=== PATIENT | female | born 1995 | race African-American/Black ===

== ENCOUNTER 2018-09-13 14:11 | Emergency (ER) | payer OTHER ==
[2018-09-13 14:25] VITALS: BP 98/59; PULSE 64; TEMP 98.6; BMI 28.9
--- NOTE | 2018-09-13 14:25 | PDOC ---
Rapid Medical Evaluation Chief Complaint: Chest Pain Medical Evaluation: I have performed a brief in-person evaluation of this patient. The patient presents with a chief complaint of: hx asthma, c/o CP (sometimes R sided/L sided) x 1-2 months intermittent worse with inspiration; was on OCPs, but stopped medication 1-2 months ago; denies fever, cough, sob, recent travel Pertinent physical exam findings: In NAD, lungs clear, +reproducible chest pain I have ordered the following: EKG, CXR, labs The patient will proceed to the ED for further evaluation. 09/13/18 14:21
[2018-09-13 15:21] LABS: ANION GAP 5 MMOL/L (8-16); BLOOD UREA NITROGEN 15 mg/dL (7-18); CALCIUM 9.1 mg/dL (8.5-10.1); CHLORIDE 107 mmol/L (98-107); CO2 28 mmol/L (21-32); CREATININE 0.9 mg/dL (0.55-1.3); GLUCOSE,RANDOM 77 mg/dL (74-106); POTASSIUM 4.2 mmol/L (3.5-5.1); SODIUM 140 mmol/L (136-145)
[2018-09-13] MEDS ORDERED: IBUPROFEN 600 MG TABLET (FP) PO ONE ×2 (15:38→15:57)
[2018-09-13 15:53] LABS: BASO % 1.1 % (0-2.0); EOS % 1.2 % (0-4.5); HEMATOCRIT 42.2 % (32.4-45.2); HEMOGLOBIN 14.4 GM/dL (10.7-15.3); LYMPH % 31.1 % (8-40); MCH 30.1 pg (25.7-33.7); MCHC 34.2 g/dl (32.0-36.0); MEAN PLT VOLUME 8.3 fl (7.5-11.1); NEUT % 58.6 % (42.8-82.8); PLATELET COUNT 324 K/MM3 (134-434); RDW 13.2 % (11.6-15.6); WHITE BLOOD COUNT 4.3 K/mm3 (4.0-10.0)
--- NOTE | 2018-09-13 16:09 | PDOC ---
History of Present Illness - General Chief Complaint: Chest Pain Stated Complaint: CHEST PAIN Time Seen by Provider: 09/13/18 14:20 History Source: Patient Exam Limitations: No Limitations - History of Present Illness Initial Comments: HPI: 23 y/o female presenting to [facility] ER complaining of acute on chronic chest pain. Pain is localized to right anteromedial aspect of chest and upper back. Described as sharp in nature and only present with deep inspiration. Duration ranges from just a little while to an hour. Unable to determine illeciting events. Denies breathlessness or palpitations. Pt stopped taking OCPs two months ago. Denies personal or familial history of bleeding disorders, recent travel or periods of immobilization, recent surgery, or h/o cancer. Has been evaluated by Urgent Care and PCP over the last several weeks. Both times was told nothing is wrong. Medical Hx: - Seasonal Asthma, managed with Albuterol PRN, has not used in several weeks Surgical Hx: - Pt denies past surgical history. Past History - Past Medical History Allergies/Adverse Reactions: Allergies Allergy/AdvReac Type Severity Reaction Status Date / Time No Known Allergies Allergy Verified 09/13/18 14:25 - Suicide/Smoking/Psychosocial Hx Smoking History: Never smoked Have you smoked in the past 12 months: No Information on smoking cessation initiated: No Hx Alcohol Use: No Drug/Substance Use Hx: No Review of Systems - Review of Systems Able to Perform ROS?: Yes Comments:: In addition to that documented in the HPI above, the additional ROS was obtained : Constitutional: Denies fevers or chills Head: Denies headache ENMT: Denies sore throat CV: Denies chest pain Resp: Per HPI GI: Denies vomiting or diarrhea : Denies painful urination MSK: Denies recent trauma Skin: Denies new rashes Neuro: Denies new numbness or tingling or weakness Endocrine: Denies polyuria Heme: Denies bleeding or bruising *Physical Exam - Vital Signs Last Vital Signs Temp Pulse Resp BP Pulse Ox 98.6 F 64 20 98/59 L 100 09/13/18 14:21 09/13/18 14:21 09/13/18 14:21 09/13/18 14:21 09/13/18 14:21 - Physical Exam Comments: Constitutional: Well-developed, well-nourished, non-toxic female in no acute distress or obvious discomfort. Found sitting upright on edge of hospital hallway bed in telephone conversation. Alert and oriented x4. Answered all questions appropriately and completely. Speech was non-labored, non-pressured. Head: Normocephalic. No obvious external signs of trauma. Eyes: Sclerae white. Ears: Hearing grossly intact. Nose: No nasal discharge. Neck: Supple, trachea is midline. Cardiovascular / Chest: Regular rate and regular rhythm. No murmur, rubs, clicks, or gallops. Peripheral pulses: radial pulses full. Right costochondral joint tender to palpation. No skin lesions. Respiratory: Breathing unlabored. Equal chest rise and fall. Clear to auscultation bilaterally. No stridor, no wheezing, no rhonchi. Gastrointestinal: abdomen is soft, non-tender, non-distended. Neuro: Alert and oriented. Moving all four extremities spontaneously. Skin: Warm, dry, and intact. Psych: Affect: appropriate. Mood: normal. Moderate Sedation - Procedure Monitoring Vital Signs: Procedure Monitoring Vital Signs Temperature 98.6 F 09/13/18 14:21 Pulse Rate 64 09/13/18 14:21 Respiratory Rate 20 09/13/18 14:21 Blood Pressure 98/59 L 09/13/18 14:21 O2 Sat by Pulse Oximetry (%) 100 09/13/18 14:21 ED Treatment Course - LABORATORY CBC & Chemistry Diagram: 09/13/18 14:38 09/13/18 14:38 - ADDITIONAL ORDERS Additional order review: Laboratory Results 09/13/18 09/13/18 09/13/18 14:41 14:39 14:38 D-Dimer < 215 Sodium 140 Potassium 4.2 Chloride 107 Carbon Dioxide 28 Anion Gap 5 L BUN 15 Creatinine 0.9 Creat Clearance w eGFR > 60 Random Glucose 77 Calcium 9.1 Urine HCG, Qual Negative 09/13/18 14:38 RBC 4.80 MCV 88.0 MCHC 34.2 RDW 13.2 MPV 8.3 Neutrophils % 58.6 Lymphocytes % 31.1 Monocytes % 8.0 Eosinophils % 1.2 Basophils % 1.1 - Medications Given in the ED: ED Medications Discontinued Medications Generic Name Dose Route Start Last Admin Trade Name Freq PRN Reason Stop Dose Admin Ibuprofen 600 mg 09/13/18 15:38 09/13/18 16:04 Motrin - PO 09/13/18 15:39 Not Given ONCE ONE *DC/Admit/Observation/Transfer Diagnosis at time of Disposition: Atypical chest pain - Discharge Dispostion Disposition: HOME Condition at time of disposition: Good Decision to Admit order: No - Referrals - Patient Instructions Printed Discharge Instructions: DI for Atypical Chest Pain Additional Instructions: You can take over the counter Tylenol or Advil as needed for pain. Take as directed on the package insert. Do not exceed the recommended dosage. Follow up with your primary care doctor within the next 3-4 days. You will need to call to make an appointment. The number is included in this packet. A copy of todays results are attached to this packet. Take it to the appointment so your doctor can review them. Go to the nearest emergency department if your condition worsens or you feel like you need additional emergency evaluation. Print Language: CZECH - Post Discharge Activity Forms/Work/School Notes: Back to Work
--- NOTE | 2018-09-13 16:43 | PDOC ---
Attending Attestation - Resident Resident Name: BishopSemaj - ED Attending Attestation I have performed the following: I have examined & evaluated the patient, The case was reviewed & discussed with the resident, I agree w/resident's findings & plan, Exceptions are as noted - HPI HPI: 09/13/18 16:40 23 yo F no pmhx recent bviral uri here wtih c/o chest pain. not plueritic. worse with movement. no sob. no leg swelling no h/o travel. no prior pe or dvt. no cough currently no f/c n/v. no other complaints. - Physicial Exam PE: 09/13/18 16:41 awake alert lungs clear bilaterally heart rrr no mrg abd soft nt nd. ext wwp no edema. no calf tenderness. nuero alert oriented x 3. chest wall ttp. - Medical Decision Making 09/13/18 16:41 pt with reproducible chest pain. ttp. will obatin cxr ekg d dimer. r/o infection d dimer normal. cxr normal. labs unremarkable. ekg normal. dc home instructions for costochondritis. Heart Score/ECG Review #1 General ECG Interpretation: Sinus Rhythm, Normal Intervals, No acute ischemic changes Compared to previous ECG there are: Other (sinus bradycardia 50)
--- NOTE | 2018-09-14 10:43 | EKG ---
Test Reason : Blood Pressure : / mmHG Vent. Rate : 050 BPM Atrial Rate : 050 BPM P-R Int : 170 ms QRS Dur : 074 ms QT Int : 400 ms P-R-T Axes : 049 060 041 degrees QTc Int : 364 ms SINUS BRADYCARDIA OTHERWISE NORMAL ECG NO PREVIOUS ECGS AVAILABLE Confirmed by PARAMJIT AKHTAR, CHIOMA ([id number]) on 09/14/2018 10:42:47 AM Referred By: Confirmed By:CHIOMA YUSUF MD
== END 2018-09-13 16:47 | disposition home or self-care (01) ==
LOC: JER 14:11
DX: R07.89 Other chest pain (principal); Z87.09 Personal history of other diseases of the respiratory system
CPT/HCPCS: 36415; 71046-TC-FY; 80048; 84703; 85025; 85379; 93005; 93010; 99282-25

== ENCOUNTER 2018-10-31 09:56 | Emergency (ER) | payer OTHER ==
[2018-10-31 10:02] VITALS: BP 111/75; PULSE 68; TEMP 98.4; BMI 28.6
--- NOTE | 2018-10-31 10:39 | PDOC ---
History of Present Illness - General Chief Complaint: Vaginal Bleeding Stated Complaint: VAGINAL BLEED Time Seen by Provider: 10/31/18 10:39 History Source: Patient Exam Limitations: No Limitations - History of Present Illness Initial Comments: 10/31/18 10:54 23 year old female with no PMH A2 LMP 09/14 presented to ED for vaginal bleeding since Wednesday. She stated took a positive home test 10/21, saw her OB Dr. Heart the next week, had a positive UPT in the office, TVUS in the office did not show intrauterine or adnexal masses. She stated she was supposed to return for repeat beta testing, but did not. She stated she uses 2 pads a day, passes a large clot Wednesday. She admitted to mild pelvic cramping. She denied chest pain, shortness of breath, lightheadedness, headache , nausea, vomiting, fever, chills. Allergies: NKDA Past History - Past Medical History Allergies/Adverse Reactions: Allergies Allergy/AdvReac Type Severity Reaction Status Date / Time No Known Allergies Allergy Verified 10/31/18 10:01 Home Medications: Ambulatory Orders NK [No Known Home Medication] 09/13/18 Asthma: Yes COPD: No - Suicide/Smoking/Psychosocial Hx Smoking History: Never smoked Have you smoked in the past 12 months: No Information on smoking cessation initiated: No Hx Alcohol Use: No Drug/Substance Use Hx: No Review of Systems - Review of Systems Able to Perform ROS?: Yes Comments:: 10/31/18 10:56 General: denied fever, chills, generalized weakness. HEENT: denied sore throat, rhinorrhea, ear pain. Heart: denied chest pain, palpitations, syncope, diaphoresis. Respiratory: denied shortness of breath, cough, sputum production, hemoptysis. Abdomen: denied abdominal pain, nausea, vomiting, diarrhea, constipation, blood in stool. : admitted to vaginal bleeding, pelvic cramping. denied dysuria, increased urinary frequency, hematuria, urinary incontinence, flank pain. Back: denied back pain. Musculoskeletal: denied joint pain, muscle pain, joint swelling. Neurological: denied headache, dizziness, numbness, tingling, weakness. Skin: denied rash, laceration, abrasion. *Physical Exam - Vital Signs Last Vital Signs Temp Pulse Resp BP Pulse Ox 98.4 F 68 17 111/75 97 10/31/18 09:58 10/31/18 09:58 10/31/18 09:58 10/31/18 09:58 10/31/18 09:58 - Physical Exam Comments: 10/31/18 10:57 Constitutional: Well-nourished, Well-developed, appearing stated age. HEENT: head is normocephalic, atraumatic. EOMI. PERRLA. Neck: supple. Full ROM. Heart: regular rhythm. no murmurs, rubs or gallops. Lungs: clear to auscultation bilaterally. no crackles, rhonchi or wheezing. no stridor. Abdomen: soft, nontender. normal bowel sounds. no rebound, guarding, masses. Extremities: peripheral pulses intact. no lower extremity edema. Neurological: CN 2-12 grossly intact. moves all four extremities. Psych: awake, alert, oriented x3. follows commands. answers questions appropriately. Pelvic: normal external genitalia. small amount of pooling of blood in the vaginal canal, cervical os open, no CMT, no adnexal tenderness bilaterally. ED Treatment Course - LABORATORY CBC & Chemistry Diagram: 10/31/18 10:51 10/31/18 10:51 Medical Decision Making - Medical Decision Making 10/31/18 10:57 23 year old female A2 LMP 09/14 presented to ED for vaginal bleeding associated with pelvic cramping. Initial Vital Signs Temp Pulse Resp BP Pulse Ox 98.4 F 68 17 111/75 97 10/31/18 09:58 10/31/18 09:58 10/31/18 09:58 10/31/18 09:58 10/31/18 09:58 Afebrile. No tachycardia. No tachypnea. Normal blood pressure. No hypoxia on room air. Labs ordered: CBC, CMP, UA/UC, serum beta quant, T/S, coags Imaging ordered: TVUS Medications ordered: none -Pt refused Tylenol, stated she does not like to take medication 10/31/18 11:43 CBC WBC 5.0 K/mm3 (4.0-10.0) 10/31/18 10:51 RBC 4.74 M/mm3 (3.60-5.2) 10/31/18 10:51 Hgb 13.7 GM/dL (10.7-15.3) 10/31/18 10:51 Hct 41.5 % (32.4-45.2) 10/31/18 10:51 MCV 87.5 fl (80-96) 10/31/18 10:51 MCH 29.0 pg (25.7-33.7) 10/31/18 10:51 MCHC 33.1 g/dl (32.0-36.0) 10/31/18 10:51 RDW 13.6 % (11.6-15.6) 10/31/18 10:51 Plt Count 336 K/MM3 (134-434) 10/31/18 10:51 MPV 7.8 fl (7.5-11.1) 10/31/18 10:51 Absolute Neuts (auto) 3.5 K/mm3 (1.5-8.0) 10/31/18 10:51 Neutrophils % 68.9 % (42.8-82.8) 10/31/18 10:51 Lymphocytes % 25.0 % (8-40) 10/31/18 10:51 Monocytes % 4.2 % (3.8-10.2) 10/31/18 10:51 Eosinophils % 1.1 % (0-4.5) 10/31/18 10:51 Basophils % 0.8 % (0-2.0) 10/31/18 10:51 Nucleated RBC % 0 % (0-0) 10/31/18 10:51 No leukocytosis. No anemia. 10/31/18 11:43 Urine Test Results Urine Color Yellow 10/31/18 11:00 Urine Appearance Clear 10/31/18 11:00 Urine pH 5.5 (5.0-8.0) 10/31/18 11:00 Ur Specific [place] 1.027 (1.010-1.035) 10/31/18 11:00 Urine Protein Negative (NEGATIVE) 10/31/18 11:00 Urine Glucose (UA) Negative (NEGATIVE) 10/31/18 11:00 Urine Ketones Negative (NEGATIVE) 10/31/18 11:00 Urine Blood 3+ (NEGATIVE) H 10/31/18 11:00 Urine Nitrite Negative (NEGATIVE) 10/31/18 11:00 Urine Bilirubin Negative (NEGATIVE) 10/31/18 11:00 Ur Leukocyte Esterase Negative (NEGATIVE) 10/31/18 11:00 Negative for UTI. Blood in urine likely from vaginal bleeding. 10/31/18 11:59 CMP Sodium 136 mmol/L (136-145) 10/31/18 10:51 Potassium 4.3 mmol/L (3.5-5.1) 10/31/18 10:51 Chloride 107 mmol/L (98-107) 10/31/18 10:51 Carbon Dioxide 25 mmol/L (21-32) 10/31/18 10:51 Anion Gap 4 MMOL/L (8-16) L 10/31/18 10:51 BUN 16 mg/dL (7-18) 10/31/18 10:51 Creatinine 0.9 mg/dL (0.55-1.3) 10/31/18 10:51 Creat Clearance w eGFR 77.59 (>60) 10/31/18 10:51 Random Glucose 80 mg/dL (74-106) 10/31/18 10:51 Calcium 9.3 mg/dL (8.5-10.1) 10/31/18 10:51 Total Bilirubin 0.7 mg/dL (0.2-1) 10/31/18 10:51 AST 13 U/L (15-37) L 10/31/18 10:51 ALT 15 U/L (13-61) 10/31/18 10:51 Alkaline Phosphatase 54 U/L (45-117) 10/31/18 10:51 Total Protein 7.4 g/dl (6.4-8.2) 10/31/18 10:51 Albumin 3.6 g/dl (3.4-5.0) 10/31/18 10:51 No electrolyte abnormalities. No FRANCIE. No transaminitis. T/S: A+ - No need for Rhogam 10/31/18 12:18 Beta 1414 Pending TVUS report. 10/31/18 13:23 TVUS report: intrauterine gestation sac like struture in the lower uterine segment with a man sac diameter of 4 mm. no pole or yolk sac identified. suggestive of in progress. likely hemorrhagic corpus luteum cyst in the right ovary measuring 1.5x1.4cm. Dr. Heart's office called, she is out of the office on vacation, nurse reported b-Hcg on 10/26/18 was 1812.9. Pt likely having spontaneous miscarriage. Pt informed of results. Pt informed to follow up in OB or ED for repeat beta in 2 days. Pt discharged. *DC/Admit/Observation/Transfer Diagnosis at time of Disposition: Vaginal bleeding, Spontaneous miscarriage - Discharge Dispostion Condition at time of disposition: Stable Decision to Admit order: No - Referrals - Patient Instructions Printed Discharge Instructions: Dealing With Miscarriage, DI for Miscarriage, DI for Vaginal Bleeding Additional Instructions: You were seen today for vaginal bleeding. Your lab work showed a decreasing level hormone, which is consistent with a miscarriage. You will continue to bleed for a few days, and it could increase. Follow up with your OB in 48 hours to ensure this number continues to decrease. If you cannot get an appointment then return to the Emergency Department. You MUST have this level rechecked. Take Tylenol and/or Motrin for the pain. They are not the same medication and can be taken at the same time. Take as advised on labels. Return to the Emergency Department for chest pain, shortness of breath, soaking through >2 pads in 2 hours for longer than 4 hours, lightheadedness like you may pass out, fever, vomiting, or any other new, worsening or concerning symptoms. - Post Discharge Activity Forms/Work/School Notes: Back to Work
[2018-10-31 11:06] LABS: BASO % 0.8 % (0-2.0); EOS % 1.1 % (0-4.5); HEMATOCRIT 41.5 % (32.4-45.2); HEMOGLOBIN 13.7 GM/dL (10.7-15.3); MCHC 33.1 g/dl (32.0-36.0); MEAN CELL VOLUME 87.5 fl (80-96); MEAN PLT VOLUME 7.8 fl (7.5-11.1); MONO % 4.2 % (3.8-10.2); NEUT % 68.9 % (42.8-82.8); PLATELET COUNT 336 K/MM3 (134-434); RBC 4.74 M/mm3 (3.60-5.2); RDW 13.6 % (11.6-15.6)
[2018-10-31 11:18] LABS: EPI CELLS 2.5 /HPF (0-5/HPF); PH,URINE 5.5 (5.0-8.0); URINE APPEARANCE CLEAR; URINE BACTERIA 83.3 /hpf (NEGATIVE); URINE BILIRUBIN NEGATIVE (NEGATIVE); URINE CASTS 1 /lpf (0-8); URINE COLOR YELLOW; URINE GLUCOSE (UA) NEGATIVE (NEGATIVE); URINE KETONE NEGATIVE (NEGATIVE); URINE LEUK ESTERASE NEGATIVE (NEGATIVE); URINE NITRITE NEGATIVE (NEGATIVE); URINE PROTEIN NEGATIVE (NEGATIVE); URINE RBC 98 /hpf (0-4); URINE UROBILINOGEN 0.2 mg/dL (0.2-1.0); URINE WBC 2 /hpf (0-5)
[2018-10-31 11:36] LABS: INR 1.1 (0.83-1.09)
[2018-10-31 11:49] LABS: ALBUMIN 3.6 g/dl (3.4-5.0); ALK PHOS 54 U/L (45-117); ANION GAP 4 MMOL/L (8-16); BILIRUBIN,TOTAL 0.7 mg/dL (0.2-1); BLOOD UREA NITROGEN 16 mg/dL (7-18); CALCIUM 9.3 mg/dL (8.5-10.1); CHLORIDE 107 mmol/L (98-107); CO2 25 mmol/L (21-32); CREATININE 0.9 mg/dL (0.55-1.3); GLUCOSE,RANDOM 80 mg/dL (74-106); POTASSIUM 4.3 mmol/L (3.5-5.1); SGOT/AST 13 U/L (15-37); SGPT/ALT 15 U/L (13-61); SODIUM 136 mmol/L (136-145); TOT PROT 7.4 g/dl (6.4-8.2)
--- NOTE | 2018-10-31 11:59 | PDOC ---
Attending Attestation - Resident Resident Name: Violet Steven - ED Attending Attestation I have performed the following: I have examined & evaluated the patient, The case was reviewed & discussed with the resident, I agree w/resident's findings & plan, Exceptions are as noted - HPI HPI: 23 yo F A2 (two prior abortions) presents approximately 6 weeks 5 days by LMP with vaginal bleeding. She states she saw Dr. Heart previously, they were unable to see an IUP. She has had light bleeding since then (less than a pad a day). Denies any pain, lightheadedness. - Physicial Exam PE: GENERAL: Awake, alert, and fully oriented, in no acute distress HEAD: No signs of trauma EYES: PERRLA, EOMI, sclera anicteric, conjunctiva clear ENT: Auricles normal inspection, hearing grossly normal, nares patent, oropharynx clear without exudates. Moist mucosa NECK: Normal ROM, supple, no lymphadenopathy, JVD, or masses LUNGS: Breath sounds equal, clear to auscultation bilaterally. No wheezes, and no crackles HEART: Regular rate and rhythm, normal S1 and S2, no murmurs, rubs or gallops ABDOMEN: Soft, nontender, normoactive bowel sounds. No guarding, no rebound. No masses EXTREMITIES: Normal range of motion, no edema. No clubbing or cyanosis. No cords, erythema, or tenderness NEUROLOGICAL: Cranial nerves II through XII grossly intact. Normal speech, normal gait. Motor and sensation intact SKIN: Warm, Dry, normal turgor, no rashes or lesions noted. - Medical Decision Making Contacted Dr. Heart's office, previous BHCG was ~1800. Given the ultrasound findings and the decreasing BHCG, this is likely a miscarriage in progress. Expectant management. 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
== END 2018-10-31 14:30 | disposition home or self-care (01) ==
LOC: JER 09:56
DX: O26.891 Other specified pregnancy related conditions, first trimester (principal); O03.4 Incomplete spontaneous abortion without complication; O34.81 Maternal care for other abnormalities of pelvic organs, first trimester; N83.11 Corpus luteum cyst of right ovary; Z3A.00 Weeks of gestation of pregnancy not specified
CPT/HCPCS: 36415; 76817-TC; 80053; 81003; 84702; 85025; 85610; 85730; 86850; 86900; 86901; 87086; 99282-25

== ENCOUNTER 2018-11-02 14:08 | Emergency (ER) | payer OTHER ==
[2018-11-02 14:18] VITALS: BP 103/58; PULSE 61; TEMP 98.2; BMI 28.6
--- NOTE | 2018-11-02 14:43 | PDOC ---
History of Present Illness - General Chief Complaint[place] [facility] [place] Complaint: [place] Time Seen by Provider: 11/02/18 14:27 Past History - Past Medical History Allergies/Adverse Reactions: Allergies Allergy/AdvReac Type Severity Reaction Status Date / Time No Known Allergies Allergy Verified 11/02/18 14:28 Home Medications: Ambulatory Orders NK [No Known Home Medication] 09/13/18 Asthma: Yes COPD: No - Suicide/Smoking/Psychosocial Hx Smoking History: Never smoked Have you smoked in the past 12 months: No Information on smoking cessation initiated: No Hx Alcohol Use: No Drug/Substance Use Hx: No *Physical Exam - Vital Signs Last Vital Signs Temp Pulse Resp BP Pulse Ox 98.2 F 61 18 103/58 L 99 11/02/18 14:14 11/02/18 14:14 11/02/18 14:14 11/02/18 14:14 11/02/18 14:14 *DC/Admit/Observation/Transfer Diagnosis at time of Disposition: Threatened - Discharge Dispostion Disposition: HOME Condition at time of disposition: Stable Decision to Admit order: No - Referrals Referrals: Naye Heart MD [Staff Physician] - - Patient Instructions Printed Discharge Instructions: DI for Threatened Additional Instructions: Your ultrasound today was unchanged from 2 days ago. Your beta hCG increased to 1900 today. Please follow-up with Dr. Villasenor in the office tomorrow. This is a potential miscarriage however it could still possibly be a viable . Return to the ER for abdominal pain, vomiting, vaginal bleeding with more than 1 pad use per hour, fever, or if you have any changes in your symptoms. - Post Discharge Activity Forms/Work/School Notes: Back to Work
== END 2018-11-02 17:44 | disposition home or self-care (01) ==
LOC: JERFT 14:08
DX: O20.0 Threatened abortion (principal); Z3A.00 Weeks of gestation of pregnancy not specified; J45.909 Unspecified asthma, uncomplicated
CPT/HCPCS: 36415; 76817-TC; 84702; 99281-25

== ENCOUNTER 2018-11-12 12:12 | Emergency (ER) | payer OTHER ==
[2018-11-12 12:19] VITALS: TEMP 98; BMI 28.9
[2018-11-12 13:53] LABS: BASO % 1.3 % (0-2.0); EOS % 1.3 % (0-4.5); HEMATOCRIT 37.9 % (32.4-45.2); HEMOGLOBIN 12.7 GM/dL (10.7-15.3); LYMPH % 29.1 % (8-40); MCH 29.6 pg (25.7-33.7); MCHC 33.5 g/dl (32.0-36.0); MEAN CELL VOLUME 88.3 fl (80-96); MEAN PLT VOLUME 7.8 fl (7.5-11.1); MONO % 4.4 % (3.8-10.2); NEUT % 63.9 % (42.8-82.8); PLATELET COUNT 295 K/MM3 (134-434); RDW 13.6 % (11.6-15.6); WHITE BLOOD COUNT 4.8 K/mm3 (4.0-10.0)
--- NOTE | 2018-11-12 14:01 | PDOC ---
Documentation entered by Tim Jurado SCRIBE, acting as scribe for Mary Burger MD. Mary Burger MD: This documentation has been prepared by the sailajaibe, Tim Jurado SCRIBE, under my direction and personally reviewed by me in its entirety. I confirm that the documentation accurately reflects all work, treatment, procedures, and medical decision making performed by me. Attending Attestation - Resident Resident Name: Mary Landers - ED Attending Attestation I have performed the following: I have examined & evaluated the patient, The case was reviewed & discussed with the resident, I agree w/resident's findings & plan, Exceptions are as noted - HPI HPI: 11/12/18 13:29 The patient is a 23 year old female with a past medical history of A2 LMP here today for evaluation of vaginal bleeding. The patient reports that she was here 2 weeks ago for similar symptoms. She reports following up with with her OB, Dr. Heart but came in today due to heavier bleeding on (). Patient denies any pain. Patient denies headache, lightheadedness. Denies fever, chills. Denies chest pain, shortness of breath. Denies nausea, vomiting, diarrhea, abdominal pain. Allergies: OB: Naye Heart - Physicial Exam PE: GENERAL: Awake, alert, and fully oriented, in no acute distress HEAD: No signs of trauma EYES: PERRLA, EOMI, sclera anicteric, conjunctiva clear ENT: Auricles normal inspection, hearing grossly normal, nares patent, oropharynx clear without exudates. Moist mucosa NECK: Normal ROM, supple, no lymphadenopathy, JVD, or masses LUNGS: Breath sounds equal, clear to auscultation bilaterally. No wheezes, and no crackles HEART: Regular rate and rhythm, normal S1 and S2, no murmurs, rubs or gallops ABDOMEN: Soft, nontender, normoactive bowel sounds. No guarding, no rebound. No masses EXTREMITIES: Normal range of motion, no edema. No clubbing or cyanosis. No cords, erythema, or tenderness NEUROLOGICAL: Cranial nerves II through XII grossly intact. Normal speech, normal gait. Motor and sensation intact SKIN: Warm, Dry, normal turgor, no rashes or lesions noted. - Medical Decision Making Pt with intermittent bleeding through her first trimester. Now with bleeding today. Previously had a confirmatory ultrasound. Will send labs and obtain ultrasound.
--- NOTE | 2018-11-12 14:27 | PDOC ---
History of Present Illness - General Chief Complaint: Vaginal Bleeding Stated Complaint: VAGINAL BLEEDING Time Seen by Provider: 11/12/18 12:27 - History of Present Illness Initial Comments: 23yo A2 currently 9 weeks (LMP 09/14/18) presenting with vaginal bleeding. Patient has been seen previously in this ED with similar complaint. She states she has had vaginal bleeding since she had been discharged from the ED two weeks ago. 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 Patient states she had an informal ultrasound performed at her channel director's office which she says confirmed an intrauterine but she is unsure if it showed heart tones. She believes her most recent beta-hcg level was 2900. Patient had an appointment for a formal ultrasound today but decided to come to the ED instead due to her concern for continued vaginal bleeding. Denies abdominal pain. Reports passage of blood clots but no tissue. She has not felt contractions. No history of abdominal surgeries. No dysuria, hematuria, or urgency. Denies fever, chills, chest pain, or shortness of breath. 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 Past History - Past Medical History Allergies/Adverse Reactions: Allergies Allergy/AdvReac Type Severity Reaction Status Date / Time No Known Allergies Allergy Verified 11/12/18 12:36 Home Medications: Ambulatory Orders NK [No Known Home Medication] 09/13/18 Asthma: Yes COPD: No - Reproductive History Is Patient Now?: Yes Cervical CA: No Dysfunctional Uterine Bleeding: No Ectopic : No Endometrial CA: No Polycystic Ovaries: No Therapeutic (s) & number: Yes (2) Tubal Ligation: No - Suicide/Smoking/Psychosocial Hx Smoking History: Never smoked Have you smoked in the past 12 months: No Hx Alcohol Use: No Drug/Substance Use Hx: No Review of Systems - Review of Systems Comments:: Constitutional: no fever, no chills HEENT: no throat pain, no dysphagia Cardiovascular: no chest pain, no palpitations Respiratory: no cough, no shortness of breath Gastrointestinal: no abdominal pain, no nausea Genitourinary: no dysuria, +vaginal bleeding Musculoskeletal: no myalgia, no arthralgia Skin: no rash, no itching Neurologic: no headache, no weakness *Physical Exam - Vital Signs Last Vital Signs Temp Pulse Resp BP Pulse Ox 98 F 90 18 101/57 L 100 11/12/18 12:13 11/12/18 12:13 11/12/18 12:13 11/12/18 12:13 11/12/18 12:13 - Physical Exam Comments: General: Awake, alert, and fully oriented, in no acute distress Head: No signs of trauma Eyes: EOMI, sclera anicteric ENT: Moist mucus membranes Neck: Normal ROM, supple Lungs: Lungs clear, Normal breath sounds Cardio: Regular rhythm, S1 and S2 present Abdomen: Soft, nontender. No guarding, no rebound, no masses Extremities: Normal range of motion, Distal pulses present SKIN: Warm, Dry, normal turgor Neurologic: Cranial nerves II through XII grossly intact. Normal speech Pelvic: External genitalia without erythema, exudate or discharge. Vaginal vault is with moderate amout of blood and clots. No tissue noted. Cervix is of normal color without lesion. The os is closed. Uterus is noted to be of appropriate size and nontender. No cervical motion tenderness is seen. No masses are palpated. The adnexa are without masses or tenderness. ED Treatment Course - LABORATORY CBC & Chemistry Diagram: 11/12/18 13:43 11/12/18 13:41 - ADDITIONAL ORDERS Additional order review: 11/12/18 13:43 RBC 4.30 MCV 88.3 MCHC 33.5 RDW 13.6 MPV 7.8 Neutrophils % 63.9 Lymphocytes % 29.1 Monocytes % 4.4 Eosinophils % 1.3 Basophils % 1.3 - RADIOLOGY Radiology Studies Ordered: Category Date Time Status TRANSVAGINAL US PREG [US] Stat Ultrasound 11/12/18 13:26 Ordered Medical Decision Making - Medical Decision Making 23yo A2 currently 9 weeks (LMP 09/14/18) presenting with vaginal bleeding. DDX including but not limited to threatened , missed , ectopic CBC, CMP, B-hcg Per Type and Screen performed on 10/31/18, patient is Rh positive TVUS : "FINDINGS: The uterus measures 10.0 x 4.8 x 5.3 cm. The endometrium measures 0.4 cm in AP dimension. Again noted in the cervical portion the lower uterine segment of the uterus is a cystic structure measuring 1.0 x 0.5 x 0.9 cm. Prior studies is findings within suggested to represent a gestational sac. If so by ultrasound measurements 5 weeks 3 days. However again no evidence of a pole or yolk sac. The right ovary measures 3.6 x 1.4 x 2.0 cm.. Including a 1.2 cm complex ovarian cyst The left ovary measures 3.3 x 1.6 x 1.9 cm. There are no adnexal masses. There is no free fluid in the pelvis. IMPRESSION No gross change from prior studies. The findings could represent a gestational sac in the lower uterine segment or cervical portion of the uterus which would suggest an in progress. However clinical correlation recommended and correlation with beta-hCGs is recommended to confirm this finding and to exclude other etiologies" CBC WBC 4.8 K/mm3 (4.0-10.0) 11/12/18 13:43 RBC 4.30 M/mm3 (3.60-5.2) 11/12/18 13:43 Hgb 12.7 GM/dL (10.7-15.3) 11/12/18 13:43 Hct 37.9 % (32.4-45.2) 11/12/18 13:43 MCV 88.3 fl (80-96) 11/12/18 13:43 MCH 29.6 pg (25.7-33.7) 11/12/18 13:43 MCHC 33.5 g/dl (32.0-36.0) 11/12/18 13:43 RDW 13.6 % (11.6-15.6) 11/12/18 13:43 Plt Count 295 K/MM3 (134-434) 11/12/18 13:43 MPV 7.8 fl (7.5-11.1) 11/12/18 13:43 Absolute Neuts (auto) 3.1 K/mm3 (1.5-8.0) 11/12/18 13:43 Neutrophils % 63.9 % (42.8-82.8) 11/12/18 13:43 Lymphocytes % 29.1 % (8-40) 11/12/18 13:43 Monocytes % 4.4 % (3.8-10.2) 11/12/18 13:43 Eosinophils % 1.3 % (0-4.5) 11/12/18 13:43 Basophils % 1.3 % (0-2.0) 11/12/18 13:43 Nucleated RBC % 0 % (0-0) 11/12/18 13:43 No leukocytosis or anemia CMP Sodium 139 mmol/L (136-145) 11/12/18 13:41 Potassium 3.8 mmol/L (3.5-5.1) 11/12/18 13:41 Chloride 107 mmol/L (98-107) 11/12/18 13:41 Carbon Dioxide 27 mmol/L (21-32) 11/12/18 13:41 Anion Gap 5 MMOL/L (8-16) L 11/12/18 13:41 BUN 19 mg/dL (7-18) H 11/12/18 13:41 Creatinine 0.8 mg/dL (0.55-1.3) 11/12/18 13:41 Creat Clearance w eGFR 88.89 (>60) 11/12/18 13:41 Random Glucose 76 mg/dL (74-106) 11/12/18 13:41 Calcium 8.9 mg/dL (8.5-10.1) 11/12/18 13:41 Total Bilirubin 0.6 mg/dL (0.2-1) 11/12/18 13:41 AST 12 U/L (15-37) L 11/12/18 13:41 ALT 15 U/L (13-61) 11/12/18 13:41 Alkaline Phosphatase 53 U/L (45-117) 11/12/18 13:41 Total Protein 7.5 g/dl (6.4-8.2) 11/12/18 13:41 Albumin 3.7 g/dl (3.4-5.0) 11/12/18 13:41 Beta HCG, Quant 2262.5 mIU/ml 11/12/18 13:41 B-hcg is 2262.5, increased from 1956 on 11/02/18 but lower than patient's stated recent value of 2900 performed at another facility. This b-hcg also does not correspond with her estimated gestational age. TVUS does not confirm intrauterine . Patient instructed to get repeat b-hcg level at her already scheduled channel director appointment on Wednesday. High suspicion for threatened . Pelvic rest recommended. Discharged 11/13/18 12:35 *DC/Admit/Observation/Transfer Diagnosis at time of Disposition: Threatened - Discharge Dispostion Disposition: HOME Condition at time of disposition: Stable - Referrals - Patient Instructions Printed Discharge Instructions: DI for Threatened Additional Instructions: You were seen in the Emergency Department for vaginal bleeding during . Blood work showed your b-hcg level is 2262.5 today. Ultrasound did not confirm an intrauterine . Follow-up with your channel director on Wednesday to discuss this ED visit and to further evaluate your symptoms. Your workup is not complete until you do so. Pelvic rest is advised until your channel director says otherwise. Return to the Emergency Department if you experience: -heavy bleeding (more than two pads per hour for two hours) -severe pain -lightheadedness -shortness of breath -high fever -any other concerning symptoms - Post Discharge Activity Forms/Work/School Notes: Back to Work
[2018-11-12 14:41] LABS: ALBUMIN 3.7 g/dl (3.4-5.0); ALK PHOS 53 U/L (45-117); ANION GAP 5 MMOL/L (8-16); BILIRUBIN,TOTAL 0.6 mg/dL (0.2-1); BLOOD UREA NITROGEN 19 mg/dL (7-18); CALCIUM 8.9 mg/dL (8.5-10.1); CHLORIDE 107 mmol/L (98-107); CO2 27 mmol/L (21-32); CREATININE 0.8 mg/dL (0.55-1.3); GLUCOSE,RANDOM 76 mg/dL (74-106); POTASSIUM 3.8 mmol/L (3.5-5.1); SGOT/AST 12 U/L (15-37); SGPT/ALT 15 U/L (13-61); SODIUM 139 mmol/L (136-145); TOT PROT 7.5 g/dl (6.4-8.2)
[2018-11-12 15:34] VITALS: BP 104/72; PULSE 67
== END 2018-11-12 15:34 | disposition home or self-care (01) ==
LOC: JER 12:12 → JERFT 12:12 → JER 15:34
DX: O26.891 Other specified pregnancy related conditions, first trimester (principal); O20.0 Threatened abortion; O34.81 Maternal care for other abnormalities of pelvic organs, first trimester; N83.291 Other ovarian cyst, right side; Z3A.09 9 weeks gestation of pregnancy
CPT/HCPCS: 36415; 76817-TC; 80053; 84702; 84703; 85025; 99282-25

== ENCOUNTER 2018-11-30 07:06 | Emergency (ER) | payer OTHER ==
[2018-11-30 07:43] VITALS: BMI 28.9
--- NOTE | 2018-11-30 08:00 | PDOC ---
History of Present Illness - General Chief Complaint: Vaginal Bleeding Stated Complaint: R/O MISCARRIAGE Time Seen by Provider: 11/30/18 07:53 History Source: Patient - History of Present Illness Timing/Duration: reports: changing over time Past History - Past Medical History Allergies/Adverse Reactions: Allergies Allergy/AdvReac Type Severity Reaction Status Date / Time No Known Allergies Allergy Verified 11/30/18 07:33 Home Medications: Ambulatory Orders NK [No Known Home Medication] 09/13/18 Asthma: Yes COPD: No - Reproductive History Cervical CA: No Dysfunctional Uterine Bleeding: No Ectopic : No Endometrial CA: No Polycystic Ovaries: No Therapeutic (s) & number: Yes (2) Tubal Ligation: No - Suicide/Smoking/Psychosocial Hx Smoking History: Never smoked Have you smoked in the past 12 months: No Hx Alcohol Use: No Drug/Substance Use Hx: No Review of Systems - Review of Systems Constitutional: No: Chills, Fever ABD/GI: No: Nausea, Vomiting, Abdominal cramping : No: Dysuria *Physical Exam - Vital Signs Last Vital Signs Temp Pulse Resp BP Pulse Ox 98.2 F 59 L 17 106/58 L 99 11/30/18 07:34 11/30/18 07:34 11/30/18 07:34 11/30/18 07:34 11/30/18 07:34 - Physical Exam General Appearance: Yes: Appropriately Dressed. No: Apparent Distress HEENT: positive: Normal Voice Neck: positive: Supple Respiratory/Chest: negative: Respiratory Distress Gastrointestinal/Abdominal: positive: Soft. negative: Tender Musculoskeletal: negative: CVA Tenderness Integumentary: positive: Dry, Warm Neurologic: positive: Fully Oriented, Alert, Normal Mood/Affect ED Treatment Course - RADIOLOGY Radiology Studies Ordered: Category Date Time Status TRANSVAGINAL US PREG [US] Stat Ultrasound 11/30/18 07:56 Ordered Medical Decision Making - Medical Decision Making 11/30/18 07:58 23 yo F, (s/p elective AB x 2), dx w/ missed AB 11/04 @ ~6 weeks, after presenting to [facility] w/ first trimester bleed, here w/ worsening bleeding per pt, passed "a very large clot" this am. No abd pain, dysuria, n/v/f/c. Pt was seen on 3 different occasions in ED, last time 11/12 when ultrasound was read as a possible gestational sac in the lower segment of uterus consistent with an in progress. There was also an inappropriate rise in patient's beta, last results here was 2262. Patient states since her last visit with us, has been seen by her SPINNING MULE OPERATOR who repeated ultrasound and told patient that there was no evidence of a , pt does not know beta results from that visit. Patient states she called her SPINNING MULE OPERATOR this week but was unable to be seen. See exam Spon AB in progress US 11/12 read as possible AB in progress w/ inappropriate beta rise US 11/14 in SPINNING MULE OPERATOR's office showed no e/o preg per pt Stable and well leah here w/ benign abd -will rpt beta and US given ? worsening bleed per pt 11/30/18 09:12 11/30/18 09:52 Beta 251 w/ no e/o on US. Pt informed of results. To continue f/u with her SPINNING MULE OPERATOR *DC/Admit/Observation/Transfer Diagnosis at time of Disposition: Miscarriage - Discharge Dispostion Disposition: HOME Condition at time of disposition: Good - Referrals - Patient Instructions Printed Discharge Instructions: Miscarriage Additional Instructions: Your beta today was 200 and your ultrasound revealed no evidence of a , which most likely means that you almost completed a miscarriage. Please continue to follow-up with your OB - Post Discharge Activity Forms/Work/School Notes: Back to Work
[2018-11-30 09:57] VITALS: BP 112/62; PULSE 72; TEMP 98.1
== END 2018-11-30 09:57 | disposition home or self-care (01) ==
LOC: JER 07:06
DX: O03.9 Complete or unspecified spontaneous abortion without complication (principal)
CPT/HCPCS: 36415; 76817-TC; 84702; 99283-25